=== PATIENT | female | born 1985 | race Two or more races ===

== ENCOUNTER 2022-03-19 10:30 | Inpatient (IN) | payer OTHER ==
[~2022-03-19] VITALS: Ht 157.5 cm; Wt 64.4 kg
[~2022-03-19 10:30] MED LIST: ASACOR; DOSTINEX0.5 MG PO; LIBRAX CAPSULE1 CA1 PO; PREVACID30 MG PO; SYMAX-SL0.125 MG PO
[2022-03-19] MEDS ORDERED: PREDNISONE PO (13:59)
[2022-03-19] MEDS ORDERED: MESALAMINE800 MG PO (13:59)
[2022-03-21] MEDS ORDERED: PREDNISONE20 M1 (11:17)
[2022-03-25] MEDS ORDERED: OXYC1TAB9 PO (13:24)
[2022-03-25] MEDS ORDERED: IMODIUM A-D2 MG PO (13:24)
== END 2022-03-25 15:23 | disposition home or self-care (01) | DRG 331 ==
LOC: SURG 03-21 07:00 → O/R 03-21 09:42 → SURG 03-21 10:30
PROVIDERS: ADMIT Surgery; ATTEND Surgery
PROC: 0D1B4Z4 Bypass Ileum to Cutaneous, Percutaneous Endoscopic Approach (ICD-10-PCS; 2022-03-21)
PROC: 0DTF4ZZ Resection of Right Large Intestine, Percutaneous Endoscopic Approach (ICD-10-PCS; principal; 2022-03-21 07:00)
DX: K51.218 Ulcerative (chronic) proctitis with other complication (principal); R59.0 Localized enlarged lymph nodes; Z20.822 Contact with and (suspected) exposure to COVID-19

== ENCOUNTER 2022-07-17 09:00 | Inpatient (IN) | payer OTHER ==
[~2022-07-17] VITALS: Ht 157.5 cm; Wt 59.0 kg
[~2022-07-17 09:00] MED LIST changes: +IMODIUM A-D2 MG PO; +MESALAMINE800 MG PO; +OXYC1TAB9 PO; +PREDNISONE PO; +PREDNISONE20 M1
[2022-07-25] MEDS ORDERED: HYOSCYAMINE0.125 M1 SL (13:39)
[2022-07-25] MEDS ORDERED: ULTRACET PO (13:40)
== END 2022-07-25 15:16 | disposition home or self-care (01) | DRG 348 ==
LOC: SURH 07-22 05:54 → O/R 07-22 05:54 → SURH 07-22 09:00
PROVIDERS: ADMIT Surgery; ATTEND Surgery
PROC: 0DBB4ZZ Excision of Ileum, Percutaneous Endoscopic Approach (ICD-10-PCS; principal; 2022-07-22 17:00)
DX: Z43.2 Encounter for attention to ileostomy (principal); K51.20 Ulcerative (chronic) proctitis without complications; K51.218 Ulcerative (chronic) proctitis with other complication; K66.0 Peritoneal adhesions (postprocedural) (postinfection); Z20.822 Contact with and (suspected) exposure to COVID-19

== ENCOUNTER 2022-11-08 19:59 | Inpatient (IN) | payer OTHER ==
[~2022-11-08] VITALS: Ht 157.5 cm; Wt 59.0 kg
[~2022-11-08 19:59] MED LIST changes: +HYOSCYAMINE0.125 M1 SL; +ULTRACET PO
[2022-11-08] MEDS ORDERED: PEPCID AC20 MG (20:21)
[2022-11-10] MEDS ORDERED: LEVOFLOXACIN500 MG PO (09:01)
[2022-11-10] MEDS ORDERED: METRONIDAZOLE500 MG PO (09:01)
[2022-11-10] MEDS ORDERED: PEPCID AC20 MG PO (09:01)
[2022-11-10] MEDS ORDERED: INTESTINEX680 M1 PO (09:02)
[2022-11-10] MEDS ORDERED: DICY20TA PO (09:02)
== END 2022-11-10 10:13 | disposition home or self-care (01) | DRG 386 ==
LOC: ER 19:59 → SURG 11-09 00:06
PROVIDERS: ADMIT Surgery; ATTEND Surgery
PROC: BW21ZZZ Computerized Tomography (CT Scan) of Abdomen and Pelvis (ICD-10-PCS; principal; 2022-11-09)
DX: K51.812 Other ulcerative colitis with intestinal obstruction (principal); K56.699 Other intestinal obstruction unspecified as to partial versus complete obstruction; D35.2 Benign neoplasm of pituitary gland; Z79.52 Long term (current) use of systemic steroids

== ENCOUNTER 2022-12-31 10:33 | Emergency (ER) | payer OTHER ==
[~2022-12-31] VITALS: Ht 157.5 cm; Wt 59.0 kg
[~2022-12-31 10:33] MED LIST changes: +DICY20TA PO; +INTESTINEX680 M1 PO; +LEVOFLOXACIN500 MG PO; +METRONIDAZOLE500 MG PO; +PEPCID AC20 MG; +PEPCID AC20 MG PO
[2022-12-31] MEDS ORDERED: IMODIUM A-D2 M2 PO (11:18)
== END 2022-12-31 16:48 | disposition left against medical advice (07) ==
LOC: ER 10:33 → SEC-K 16:20 → ER 16:20 → SEC-K 16:48
PROVIDERS: General Practice
DX: K52.9 Noninfective gastroenteritis and colitis, unspecified (principal); D35.2 Benign neoplasm of pituitary gland; K51.90 Ulcerative colitis, unspecified, without complications; Z20.822 Contact with and (suspected) exposure to COVID-19